=== PATIENT | female | born 1975 | race Caucasian/White ===

== ENCOUNTER → 2016-10-21 | Outpatient (CLI) | payer SELFPAY | END | disposition home or self-care (01) | LOC: RAD.S 15:26 | DX: N61.1 Abscess of the breast and nipple (principal) ==

== ENCOUNTER → 2016-11-01 | Outpatient (CLI) | payer SELFPAY | END | disposition home or self-care (01) | LOC: RAD.S 11:00 | DX: N61.1 Abscess of the breast and nipple (principal) ==

== ENCOUNTER → 2016-11-04 | Outpatient (CLI) | payer SELFPAY | END | disposition home or self-care (01) | LOC: RAD.S 14:30 | DX: N64.4 Mastodynia (principal) ==